=== PATIENT | male | born 1970 | race African-American/Black ===

== ENCOUNTER → 2020-04-21 12:42 | Outpatient (CLI) | payer BC, SELFPAY ==
--- NOTE | 2020-04-21 12:53 | US_ITS ---
PROCEDURE: US KIDNEY CLINICAL INDICATION: STAGE 3 CHRONIC KIDNEY DISEASE Renal failure COMPARISON: No exams were available for comparison FINDINGS: The right kidney is [id number]. No hydronephrosis, cortical thinning, or renal mass or perinephric fluid collection is evident. The left kidney is [id number]. No hydronephrosis, cortical thinning, or renal mass or perinephric fluid collection is evident. IMPRESSION: Unremarkable bilateral renal ultrasound Dictated by: Kenji Andersen MD 04/21/2020 16:48 Electronically signed by Kenji Andersen MD in [place] 04/21/2020 16:48
== END ==
PROVIDERS: PCP Family Medicine; Visit Provider Nurse Practitioner Family
DX: N18.3 Chronic kidney disease, stage 3 (moderate) (principal)
CPT/HCPCS: 76770

== ENCOUNTER 2022-08-05 10:53 | Emergency (ER) | payer BC, SELFPAY ==
[2022-08-05 11:00] VITALS: BP 140/92; PULSE 105; RESP 20; TEMP 36.8; O2SAT 99; BMI 31.5
--- NOTE | 2022-08-05 11:16 | EXP.UTC ---
Discharge Plan Disposition Patient Disposition: Home, Self-Care Prescriptions Prescriptions: New amoxicillin 875 mg tablet 875 mg PO BID Qty: 20 0RF fluticasone propionate [Flonase Allergy Relief] 50 mcg/actuation spray,suspension 1 spray intranasal DAILY Qty: 16 0RF Rx Instructions: administer into each nostril methylprednisolone [Medrol (Miguel)] 4 mg tablets,dose pack See Rx Instructions .Route .COMPLEX 6 Days Qty: 21 0RF Rx Instructions: taper pack; No Action amlodipine-benazepril 10-40 mg capsule 1 cap PO DAILY Label Comments: TAKE 1 CAPSULE BY MOUTH ONCE DAILY Referrals Follow up/Referrals: Benito Prince MD [Primary Care Provider] - See instructions Activity Restrictions/Add. Instructions Additional Instructions/Restrictions: Take medication as prescribed Follow up with Family Doctor if no improvement or any worsening of symptoms Return if needed Straight to ER if any life threatening symptoms Over the counter Dramamine may help if your dizziness returns Clinical Impressions Clinical Impression: Otitis media Instructions Patient Instructions: Middle Ear Infections (Alternative Therapy) Discharge ED Provider: Kathy Shirley [facility] General Stated complaint: RT ear pain Mode of Arrival: Ambulatory Source of Information: Patient Limitations: No Limitations Time Seen by Provider: 08/05/22 11:16 Description of Symptoms (Recalled from Triage Doc. by RN): PATIENT C/O POPPING TO RIGHT EAR AND DIZZINESS X 2 DAYS HEENT Symptoms (Recalled from RN notes): Yes Resp Symptoms (Recalled from RN notes): No Skin Symptoms (Recalled from RN notes): No MS Symptoms (Recalled from RN notes): No Functional Status (Recalled from RN notes): WNL History of Present Illness Provider Complaint: Patient states that he has been having achy like feeling in his right ear, popping sensation and felt a little dizzy on and off when he would turn his head or move quickly States that he feels like he has an ear infection causing it Related Data Home Medications Medication Instructions Recorded Confirmed amlodipine 10 mg-benazepril 40 mg 1 cap PO DAILY Hypertension 08/05/22 08/05/22 capsule Previous Rx's Medication Instructions Recorded amoxicillin 875 mg tablet 875 mg PO BID #20 tabs 08/05/22 fluticasone propionate 50 1 spray intranasal DAILY #16 grams 08/05/22 mcg/actuation nasal spray,suspension (Flonase Allergy Relief) methylprednisolone 4 mg tablets in See Rx Instructions .Route 08/05/22 a dose pack (Medrol (Miguel)) .COMPLEX 6 days #21 tabs Allergies Allergy/AdvReac Type Severity Reaction Status Date / Time No Known Allergies Allergy Verified 08/05/22 11:15 Worker's Comp Is this a Worker's Comp case?: No PFSH PFSH Medical History (Updated 08/05/22 @ 11:20 by Kathy Shirley APRN) Hypertension Social History (Updated 08/05/22 @ 11:14 by Jennifer Thomas RN) Smoking Status: Current every day smoker alcohol intake: current current occupational status: employed Travel in the last 8 weeks: None ROS Obtained: Yes All systems reviewed & no additional complaints except as documented and Yes Systems reviewed as appropriate & no additional complaints except as documented Constitutional Constitutional: Reports system reviewed and no additional complaints, except as documented and Reports as per HPI Eyes Eyes: Reports system reviewed and no additional complaints, except as documented and Reports as per HPI ENT Ears, Nose, Mouth, and Throat: Reports system reviewed and no additional complaints, except as documented, Reports as per HPI, Reports dizziness and Reports otalgia Neurologic Neurologic: Reports dizziness Physical Exam General General appearance: alert and in no apparent distress Expanded ENT Exam TM/Canal exam: Right TM: erythema (redness and fluid noted after some of cerumen removed) and Bilateral TM: cerumen impaction (removed larg
[2022-08-05 11:21] VITALS: BP 140/92; PULSE 105; RESP 20; TEMP 36.8; O2SAT 99
== END 2022-08-05 11:25 | disposition home or self-care (01) ==
PROVIDERS: Emergency Provider Nurse Practitioner; PCP Family Medicine
DX: H66.91 Otitis media, unspecified, right ear (principal); R42 Dizziness and giddiness; I10 Essential (primary) hypertension; F17.210 Nicotine dependence, cigarettes, uncomplicated; Z79.51 Long term (current) use of inhaled steroids; Z79.52 Long term (current) use of systemic steroids
CPT/HCPCS: 99213; G0463

== ENCOUNTER 2023-11-24 16:57 | Observation (INO) | payer BC, SELFPAY ==
[2023-11-24] VITALS (8 sets, daily range): BP systolic 115–142; BP diastolic 72–82; PULSE 80–116; RESP 14–20; TEMP 36.7–36.9; O2SAT 94–100; BMI 30.1; BMI 31.6
--- NOTE | 2023-11-24 17:14 | ECG_ITS ---
APPROVED REPORT Exam: Resting ECG HR:99 bpm ECG Measurements Heart Rate 99 AXES OK 161 P 50 QRSd 82 QRS 66 QT 310 T 24 QTc 366 Conclusion SINUS RHYTHM NORMAL ECG UNCONFIRMED REPORT Electronically signed by : Benito Ramirez MD 11/25/2023 17:17:29
--- NOTE | 2023-11-24 17:16 | ED_ITS ---
Discharge Plan Disposition Patient Disposition: Admitted Chief Complaint: Dental/Oral Clinical Impressions Clinical Impression: Hyperosmolar hyperglycemic state (HHS) Discharge ED Provider: Anselmo Nolasco General Adult HPI General Chief complaint: Dental/Oral Stated complaint: fatigue dry mouth weakness Time Seen by Provider: 11/24/23 17:00 Mode of Arrival: Ambulatory Source of Information: Patient and Significant Other Limitations: No Limitations Description of Symptoms (Recalled from ER Triage Doc. by RN): pt c/o having cotton mouth over the last few days. this is the main reason for his visit per the pt. pt also reports tingling in his feet, minimal weakness and his hands pedro up. pt reports he could be dehydrated. pt has a hx of hyptertension. pt denies a hx of drug use. History of Present Illness HPI narrative: Patient is a 53-year-old male with no pertinent past medical history who presents emergency department for evaluation of tingling and dry mouth. History is obtained by patient at bedside. Over the last few days he has had gen eralized weakness, increased urinary frequency, dry mouth, intermittent drawing up his of his hands and cheek. Due to persistent symptoms he presents here for continued evaluation. Denies vomiting, no reports of chest pain, no abdominal pain, no sick contacts. Related Data Home Medications Medication Instructions Recorded Confirmed amlodipine 10 mg-benazepril 40 mg 1 cap PO DAILY Hypertension 08/05/22 08/05/22 capsule Previous Rx's Medication Instructions Recorded amoxicillin 875 mg tablet 875 mg PO BID #20 tabs 08/05/22 fluticasone propionate 50 1 spray intranasal DAILY #16 grams 08/05/22 mcg/actuation nasal spray,suspension (Flonase Allergy Relief) methylprednisolone 4 mg tablets in See Rx Instructions .Route 08/05/22 a dose pack (Medrol (Miguel)) .COMPLEX 6 days #21 tabs Allergies Allergy/AdvReac Type Severity Reaction Status Date / Time No Known Allergies Allergy Verified 11/24/23 17:12 [facility] Disclaimer: The information contained in this section may have been updated after the patient was seen, as this information can be updated by other users. Medical History (Updated 11/24/23 @ 19:26 by Anselmo Nolasco MD) Hypertension Social History (Updated 08/05/22 @ 11:23 by Navya Shirley, [employer]) Smoking Status: Current every day smoker alcohol intake: current current occupational status: employed Travel in the last 8 weeks: None ROS Obtained: Yes Systems reviewed as appropriate & no additional complaints except as documented Physical Exam General General appearance: alert and in no apparent distress Head Head exam: atraumatic and normocephalic Eye Eye exam: Present PERRL and EOMI ENT ENT exam: Present mucous membranes moist Neck Neck exam: Present normal inspection Chest Chest inspection: Present normal inspection and symmetric chest wall rise Respiratory Respiratory exam: Present normal lung sounds bilaterally; Absent respiratory distress Cardiovascular Cardiovascular exam: Present normal rhythm and tachycardia Abdominal Exam Abdominal exam: Present soft; Absent tenderness Extremities Exam Extremities exam: Present normal inspection Neurological Exam Neurological exam: Present alert and CN II-XII intact; Absent motor sensory deficit Psychiatric Psychiatric exam: Present normal affect Skin Skin exam: Present warm and dry Medical Decision Making Jose D Inquiry Pt receiving controlled substance: No Vital Signs: 11/24/23 16:58 11/24/23 18:00 Temperature 98.1 F Temperature Source Oral Pulse Rate 100 H Pulse Rate [Right] 116 H Respiratory Rate 14 Blood Pressure 115/82 Blood Pressure [Right Arm] 124/82 Blood Pressure Mean [Right Arm] 96 Blood Pressure Source [Right Arm] Automatic Cuff Blood Pressure Position [Right Arm] Sitting 02 Sat by Pulse Oximetry 98 98 Oxygen Delivery Method Room Air Lab Data Lab Results 11/24/23 17:20: WBC 6.9, RBC 4.82, Hgb 16.2, Hct 51.2, MCV 106.1 H, MCH 33.6 H, MCHC 31.7 L, RDW 12.4, Plt Count 249, MPV 10.4, Neut % (Auto) 71.4, Lymph % (Auto) 22.6, [place] % (Auto) 3.9, Eos % (Auto) 1.2, Baso % (Auto) 0.9, Neut # (Auto) 4.9, Lymph # (Auto) 1.6, [place] # (Auto) 0.3, Eos # (Auto) 0.1, Baso # (Auto) 0.1, Sodium 117 L, Potassium 6.8 H*, Chloride 85 L, Carbon Dioxide 23, Anion Gap 15.8 H, BUN 27 H, Creatinine 1.80 H, Estimated Creat Clear 65, Estimated GFR 40 L, Est GFR ( Amer) 48 L, Glucose 1012 H*, Hemoglobin A1c 11.8 H, Calcium 9.3, Magnesium 2.2, Total Bilirubin 0.9, AST 31, ALT 31, Alkaline Phosphatase 103, Total Protein 7.1, Albumin 4.4, Globulin 2.7, Albumin/Globulin Ratio 1.6, Lipase 209, TSH 1.84, Thyroxine (T4) 6.2, Acetone Level None detected 11/24/23 17:31: SARS-CoV-2 (PCR) Not detected, Influenza A Untype (PCR) Not detected, Influenza Type B (PCR) Not detected 11/24/23 17:48: VBG pH 7.29 L, VBG pCO2 50.3, VBG pO2 25.4 L, VBG HCO3 23.6, VBG Total CO2 25.2, VBG O2 Saturation 47.3 L, VBG Base Excess -2.9 L 11/24/23 17:50: Urine Color Yellow, Urine Appearance Clear, Urine pH 6.0, Ur Specific [place] <= 1.005, Urine Protein Negative, Urine Glucose (UA) 3+, Urine Ketones Negative, Urine Blood Negative, Urine Nitrate Negative, Urine Bilirubin Negative, Urine Urobilinogen 0.2, Ur Leukocyte Esterase Negative, Urine RBC None, Urine WBC None, Ur Squamous Epith Cells Occasional, Urine Bacteria None, Urine Opiates Screen Negative, Urine Methadone Screen Negative, Ur Barbituates Screen Negative, Ur Phencyclidine Scrn Negative, Ur Amphetamines Screen Negative, U Benzodiazepines Scrn Negative, Urine Cocaine Screen Negative, U Marijuana (THC) Screen Negative 11/24/23 18:10: Lactate 3.6 H 11/24/23 17:20 11/24/23 17:20 Orders (Tests/Meds): ED MEDICATIONS Generic Name Dose Route Start Last Admin Trade Name Pipoq PRN Reason Stop Dose Admin Sodium Chloride 1,000 mls @ 150 mls/hr 11/24/23 18:30 11/24/23 18:55 Sod Chlor 0.9% 1000ml Bag IV 12/24/23 18:29 150 mls/hr .[id number] HALIE Administration Insulin Human Regular 100 unit 101 mls @ 9.621 mls/hr 11/24/23 18:30 11/24/23 18:54 / Sodium Chloride IV 12/24/23 18:29 0.1 units/kg/hr .[id number] HALIE 9.62 mls/hr Administration Protocol 0.1 UNITS/KG/HR Calcium Gluconate/Sodium Chloride 2 gm in 100 mls @ 50 mls/hr 11/24/23 18:21 11/24/23 18:56 Calcium Gluconate 2,000mg/100ml Nacl Premix IV 11/24/23 20:20 50 mls/hr ONCE ONE Administration Lactated Ringer's 1,000 mls @ 999 mls/hr 11/24/23 19:02 11/24/23 19:03 Lactated Ringer's 1000 Ml Bag IV 11/24/23 20:02 999 mls/hr .Q1H1M ONE Administration Discontinued Medications Generic Name Dose Route Start Last Admin Trade Name Freq PRN Reason Stop Dose Admin Lactated Ringer's 1,000 mls @ 999 mls/hr 11/24/23 17:13 11/24/23 17:36 Lactated Ringer's 1000 Ml Bag IV 11/24/23 18:13 999 mls/hr .Q1H1M ONE Administration ORDERS Category Date Time Status Acetone, Serum (Rapid) Stat Lab 11/24/23 17:20 Completed Basic Metabolic Panel Q12H Lab 11/25/23 06:00 Ordered Basic Metabolic Panel Q12H Lab 11/25/23 18:00 Ordered Basic Metabolic Panel Q12H Lab 11/26/23 06:00 Ordered Basic Metabolic Panel Q4H Lab 11/24/23 19:11 Received Basic Metabolic Panel Q4H Lab 11/24/23 22:30 Ordered Basic Metabolic Panel Q4H Lab 11/25/23 02:30 Ordered Basic Metabolic Panel Q4H Lab 11/25/23 06:30 Ordered CBC w/Auto Diff [Complete Blood Count Auto Diff] Stat Lab 11/24/23 17:20 Completed CMP [Comprehensive Metabolic Panel] Stat Lab 11/24/23 17:20 Completed Drug Screen,Urine Stat Lab 11/24/23 17:50 Completed Hemoglobin A1C Stat Lab 11/24/23 17:20 Completed Lactic Acid Stat Lab 11/24/23 18:10 Completed Lipase Stat Lab 11/24/23 17:20 Completed Magnesium Stat Lab 11/24/23 17:20 Completed Rapid PCR Covid and Flu A/B Stat Lab 11/24/23 17:31 Completed T4 (Thyroxine) Stat Lab 11/24/23 17:20 Completed TSH [Thyroid Stimulating Hormone] Stat Lab 11/24/23 17:20 Completed UA [Urinalysis and Microscopic] Stat Lab 11/24/23 17:50 Completed Blood Culture Stat Micro 11/24/23 18:20 Ordered VBG [Venous Blood Gas] Stat RT 11/24/23 17:48 Completed EKG Request [ECG Request] Stat Y 11/24/23 17:13 Ordered ECG Data Tracing #1: Independently interpreted by me, rate is 99, rhythm is regular, no ST elevation in anatomical contiguous leads, QTc 366. Medical Decision Narrative: In summary patient is a 53-year-old male with past medical history described above presents emergency department for evaluation of dry mouth, paresthesias, intermittent muscle spasm, increased urinary frequency. Patient is hemodynamically stable and nontoxic-appearing upon arrival, afebrile, tachycardic. Differential diagnosis includes diabetes, urinary tract infection, viral syndrome, critical electrolyte abnormality, intermittent symptomatic hypocalcemia, among others. Workup will be conducted with hematologic labs, urinalysis. Initial interventions include crystalloid bolus. Initial workup reviewed by me, patient has significantly elevated glucose 1012, ketones negative, minimal acidosis. Multiple electrolyte abnormalities including hypo natremia, hyperkalemia, TONE. This is consistent with new onset diabetes with HHS. EKG has very mild elevation of T waves in the precordial leads, otherwise unremarkable from a hyperkalemia standpoint. Given this patient will be started on DKA/HHS protocol. The case was discussed with hospital medicine regarding management patient be admitted for continued evaluation at this time. Total crystalloid resuscitation 2 L in the emergency department with maintenance therapy. Critical Care Critical Care Time Critical Care Time: Yes Attestation: On 11/24/23, the high probability of a clinically significant, sudden or life threatening deterioration of the following system(s) required my full and direct attention, intervention and personal management. The time I documented below is in addition to time spent performing reported procedures but includes the following listed in this critical care notation. Total Time Total Critical Care Time: 35
[2023-11-24] MEDS: LACTATED RINGERS 1000ML 1,000 ML 999 ML IV ×2 (17:36→19:03)
[2023-11-24 17:38] LABS: Coronavirus 19, PCR Not Detected (NotDetected); Influenza A, PCR Not Detected (NotDetected); Influenza B, PCR Not Detected (NotDetected)
[2023-11-24 17:50] LABS: VBG Base Excess -2.9 mmol/L (-2.4-2.3); VBG HCO3 23.6 mmol/L (23-30); VBG Oxygen Saturation 47.3 % (50-70); VBG PCO2 50.3 mmol/L (35-51); VBG PH 7.29 mmol/L (7.31-7.41); VBG PO2 25.4 mmol/L (28-40); VBG Total CO2 25.2 mmol/L (23-27)
[2023-11-24 17:58] LABS: Microscopic, Urine URINE MICROSCOPIC (MICROSCOPIC)
[2023-11-24 18:00] LABS: Basophils # 0.1 K/mm3 (0-0.2); Basophils % 0.9 % (0.1-2.0); Eosinophils # 0.1 K/mm3 (0.0-0.4); Eosinophils % 1.2 % (0.1-12.0); Hematocrit 51.2 % (42.0-52.0); Hemoglobin 16.2 g/dL (14.1-18.0); Lymphocytes # 1.6 K/mm3 (0.7-4.5); Lymphocytes % 22.6 % (10-50); Magnesium 2.2 mg/dl (1.6-2.3); Mean Corpuscular HGB Conc 31.7 g/dL (31.8-35.4); Mean Corpuscular Hemoglobin 33.6 pg (27.0-31.2); Mean Corpuscular Volume 106.1 fl (80-94); Mean Platelet Volume 10.4 fl (7.4-10.4); Monocytes # 0.3 K/mm3 (0.1-1.0); Monocytes % 3.9 % (1.7-9.3); Neutrophils # 4.9 K/mm3 (1.8-7.8); Neutrophils % 71.4 % (37.0-80.0); Platelet Count 249 K/mm3 (142-424); Red Blood Count 4.82 M/mm3 (4.60-6.20); Red Cell Distribution Width 12.4 % (11.5-17.5); White Blood Count 6.9 K/mm3 (4.8-10.8)
[2023-11-24 18:01] LABS: Acetone, Serum (Rapid) None Detected (None Detect)
--- NOTE | 2023-11-24 18:02 | PC.NURSE ---
Pt ambulatory to bathroom. Ice chips provided. No other needs voiced.
[2023-11-24 18:03] LABS: Chloride 85 mmol/L (98-107); Sodium 117 mmol/L (136-145)
[2023-11-24 18:05] LABS: Appearance,Urine CLEAR (Clear); Bilirubin,Urine Negative (Negative); Blood, Urine Negative (Negative); Color,Urine YELLOW (Yellow); Glucose,Urine (UA) 3+ (Negative); Ketones,Urine Negative (Negative); Leukocyte Esterase,Urine Negative (Negative); Nitrate,Urine Negative (Negative); Protein,Urine Negative (Negative); Specific Gravity, Urine <= 1.005 (1.005-1.030); Urobilinogen,Urine 0.2 EU/dl (0.2)
[2023-11-24 18:05] LABS: Blood Urea Nitrogen 27 mg/dl (9-20); Creatinine Clearance Estimated 65 mL/min (50-200); Estimated Glomerular Filt Rate 40 ml/min (>60); GFR (African American) 48 ML/MIN (>60)
[2023-11-24 18:06] LABS: Alanine Aminotransferase 31 U/L (12-78); Albumin Level 4.4 g/dl (3.5-5.0); Albumin/Globulin Ratio 1.6 (1.1-1.8); Alkaline Phosphatase 103 U/L (38-126); Anion Gap 15.8 mEq/L (5-15); Aspartate Amino Transferase 31 U/L (17-59); Bilirubin,Total 0.9 mg/dl (0.2-1.3); Calcium 9.3 mg/dl (8.4-10.2); Carbon Dioxide 23 mmol/L (22.0-30.0); Globulin 2.7 g/dL (1.3-3.2); Total Protein,Serum 7.1 g/dl (6.3-8.2)
[2023-11-24 18:16] LABS: Glucose 1012 mg/dl (74-100); Potassium 6.8 mmoL/L (3.5-5.1)
[2023-11-24 18:18] LABS: Barbiturates Screen,Urine Negative ng/ml (<200)
[2023-11-24 18:19] LABS: T4 (Thyroxine) 6.2 ug/dl (5.53-11.0)
[2023-11-24 18:19] LABS: Amphetamine/Metha Screen,Urine Negative ng/ml (<1000); Benzodiazepines Screen,Urine Negative ng/ml (<200)
[2023-11-24 18:20] LABS: Cannabinoid Screen,Urine Negative ng/ml (<50)
[2023-11-24 18:21] LABS: Cocaine Screen,Urine Negative ng/ml (<300); Methadone Screen,Urine Negative ng/ml (<300)
[2023-11-24 18:22] LABS: Opiate Screen,Urine Negative ng/ml (<300)
[2023-11-24 18:23] LABS: Phencyclidine Screen,Urine Negative ng/ml (<25)
[2023-11-24 18:29] LABS: Squamous Epithelial Cell,Urine Occasional #/hpf (0-5)
[2023-11-24 18:31] LABS: Lipase 209 U/L (23-300)
[2023-11-24 18:32] LABS: Thyroid Stimulating Hormone 1.84 uIU/mL (0.465-4.68)
[2023-11-24 18:34] LABS: Lactic Acid 3.6 mmol/L (0.7-2.1)
[2023-11-24 18:50] LABS: Hemoglobin A1C 11.8 % (4.0-6.0)
[2023-11-24] MEDS: INSULIN REGULAR, HUMAN 100 UNIT in 0.9 % SODIUM CHLORIDE 100 ML 9.61999999999999922 UNIT IV (18:54)
[2023-11-24] MEDS: 0.9 % SODIUM CHLORIDE 1000ML 1,000 ML 150 ML IV (18:55)
[2023-11-24] MEDS: CALCIUM GLUC IN NACL, ISO-OSM 2 GM/100 ML BAG IV (18:56)
--- NOTE | 2023-11-24 19:05 | PC.NURSE ---
notified lodging house keeper of admission
--- NOTE | 2023-11-24 19:13 | PC.NURSE ---
in room talking with patient at this time.
--- NOTE | 2023-11-24 19:15 | PC.ADMIT ---
no@ [facility] Admission Note: The patient,Rinku Rivera,53 y/o, was given written information regarding hospital policies, unit procedures and contact persons. Patient's smoking status: Current every day smoker. Vital Signs - 8 hr 11/24/23 16:58 11/24/23 18:00 Temperature 98.1 F Pulse Rate 100 H Pulse Rate [Right] 116 H Respiratory Rate 14 Blood Pressure 115/82 Blood Pressure [Right Arm] 124/82 02 Sat by Pulse Oximetry 98 98 Oxygen Delivery Method Room Air
--- NOTE | 2023-11-24 19:15 | PC.NURSE ---
ACUTE ADMISSION TO 218 ICU WITH DX OF HHS TO SERVICE OF THE HOSPITALIST.
[2023-11-24 19:24] LABS: Chloride 89 mmol/L (98-107); Sodium 122 mmol/L (136-145)
[2023-11-24 19:25] LABS: Potassium 5.8 mmoL/L (3.5-5.1)
[2023-11-24 19:27] LABS: Blood Urea Nitrogen 25 mg/dl (9-20); Creatinine Clearance Estimated 69 mL/min (50-200); Estimated Glomerular Filt Rate 43 ml/min (>60); GFR (African American) 52 ML/MIN (>60)
[2023-11-24 19:28] LABS: Anion Gap 12.8 mEq/L (5-15); Calcium 8.9 mg/dl (8.4-10.2); Carbon Dioxide 26 mmol/L (22.0-30.0)
[2023-11-24] MEDS: NICOTINE 21MG/24HR PATCH 21 MG TD (19:33)
[2023-11-24 19:41] LABS: Glucose 798 mg/dl (74-100)
--- NOTE | 2023-11-24 19:59 | PC.NURSE ---
report called to Akosua HERR
--- NOTE | 2023-11-24 20:16 | PC.NURSE ---
Patient arrived to floor via wheelchair from ED at 20:15.
--- NOTE | 2023-11-24 20:51 | P.HP_ITS ---
Attending attestation Patient was seen and evaluated at the bedside myself, agree with QIANA note. History of Present Illness *Admission Date: 11/24/23 *Reason for visit:: [facility] *History of present illness: 53 year old male presented to [facility] ED for c/o increased thirst, urination, and weakness over the past couple days. Pt denies any nausea or vomiting. PMHX of HTN. Pt denies prior diabetes dx. The ED workup resulted in a Na 117, K 6.8, creatinine of 1.80, Anion gap of 15.8, and glucose of 1012. The pt was given 2L of LR and started on the hospital's DKA protocol. The ED physician consulted the hospitalist team for further medical management. I admitted the pt to the ICU. The pt will continue with the insulin gtt. Upon admission, the pt is in no acute distress. He is A/O X 4 and ambulates freely without difficulty. [facility] Disclaimer: The information contained in this section may have been updated after the patient was seen, as this information can be updated by other users. Medical History (Updated 11/24/23 @ 21:11 by MORRIS Call) Hypertension Social History (Updated 08/05/22 @ 11:23 by Kathy Shirley APRN) Smoking Status: Current every day smoker alcohol intake: current current occupational status: employed Travel in the last 8 weeks: None Review of Systems Constitutional Constitutional: Reports weakness *Cardiovascular Cardiovascular: Reports system reviewed and no additional complaints, except as documented *Respiratory Respiratory: Reports system reviewed and no additional complaints, except as documented *Gastrointestinal Gastrointestinal: Reports system reviewed and no additional complaints, except as documented *Genitourinary Genitourinary: Reports urinary frequency *Musculoskeletal Musculoskeletal: Reports system reviewed and no additional complaints, except as documented *Neurologic Neurologic: Reports weakness Endocrine Endocrine: Reports polydipsia and Reports polyuria Meds Home Medications and Allergies Home Medications Medication Instructions Recorded Confirmed Type amlodipine 10 mg-benazepril 40 mg 1 cap PO DAILY Hypertension 08/05/22 08/05/22 History capsule amoxicillin 875 mg tablet 875 mg PO BID #20 tabs 08/05/22 Rx fluticasone propionate 50 1 spray intranasal DAILY #16 grams 08/05/22 Rx mcg/actuation nasal spray,suspension (Flonase Allergy Relief) methylprednisolone 4 mg tablets in See Rx Instructions .Route 08/05/22 Rx a dose pack (Medrol (Miguel)) .COMPLEX 6 days #21 tabs New Prescriptions to Start Prescriptions: Allergies Allergy/AdvReac Type Severity Reaction Status Date / Time No Known Allergies Allergy Verified 11/24/23 17:12 Exam Data for Last 24 hours Vital signs and Labs for Last 24 Hours: Temp Pulse Resp BP Pulse Ox O2 Del Method 98.5 F 99 H 20 118/75 98 Room Air 11/24/23 20:13 11/24/23 20:13 11/24/23 20:13 11/24/23 20:13 11/24/23 18:00 11/24/23 20:13 Laboratory Results - last 24 hr 11/24/23 17:20: WBC 6.9, RBC 4.82, Hgb 16.2, Hct 51.2, MCV 106.1 H, MCH 33.6 H, MCHC 31.7 L, RDW 12.4, Plt Count 249, MPV 10.4, Neut % (Auto) 71.4, Lymph % (Auto) 22.6, [place] % (Auto) 3.9, Eos % (Auto) 1.2, Baso % (Auto) 0.9, Neut # (Auto) 4.9, Lymph # (Auto) 1.6, [place] # (Auto) 0.3, Eos # (Auto) 0.1, Baso # (Auto) 0.1, Sodium 117 L, Potassium 6.8 H*, Chloride 85 L, Carbon Dioxide 23, Anion Gap 15.8 H, BUN 27 H, Creatinine 1.80 H, Estimated Creat Clear 65, Estimated GFR 40 L, Est GFR ( Amer) 48 L, Glucose 1012 H*, Hemoglobin A1c 11.8 H, Calcium 9.3, Magnesium 2.2, Total Bilirubin 0.9, AST 31, ALT 31, Alkaline Phosphatase 103, Total Protein 7.1, Albumin 4.4, Globulin 2.7, Albumin/Globulin Ratio 1.6, Lipase 209, TSH 1.84, Thyroxine (T4) 6.2, Acetone Level None detected 11/24/23 17:31: SARS-CoV-2 (PCR) Not detected, Influenza A Untype (PCR) Not detected, Influenza Type B (PCR) Not detected 11/24/23 17:48: VBG pH 7.29 L, VBG pCO2 50.3, VBG pO2 25.4 L, VBG HCO3 23.6, VBG Total CO2 25.2, VBG O2 Saturation 47.3 L, VBG Base Excess -2.9 L 11/24/23 17:50: Urine Color Yellow, Urine Appearance Clear, Urine pH 6.0, Ur Specific [place] <= 1.005, Urine Protein Negative, Urine Glucose (UA) 3+, Urine Ketones Negative, Urine Blood Negative, Urine Nitrate Negative, Urine Bilirubin Negative, Urine Urobilinogen 0.2, Ur Leukocyte Esterase Negative, Urine RBC None, Urine WBC None, Ur Squamous Epith Cells Occasional, Urine Bacteria None, Urine Opiates Screen Negative, Urine Methadone Screen Negative, Ur Barbituates Screen Negative, Ur Phencyclidine Scrn Negative, Ur Amphetamines Screen Negative, U Benzodiazepines Scrn Negative, Urine Cocaine Screen Negative, U Marijuana (THC) Screen Negative 11/24/23 18:10: Lactate 3.6 H 11/24/23 19:11: Sodium 122 L, Potassium 5.8 H, Chloride 89 L, Carbon Dioxide 26, Anion Gap 12.8, BUN 25 H, Creatinine 1.70 H, Estimated Creat Clear 69, Estimated GFR 43 L, Est GFR ( Amer) 52 L, Glucose 798 H* D, Calcium 8.9 I & O for Last 24 hours: Intake & Output 11/21/23 11/22/23 11/23/23 11/24/23 23:59 23:59 23:59 23:59 Intake Total 12.416 / 12.416 Balance 12.416 / 12.416 Weight 95.254 kg Constitutional Constitutional: no acute distress *Routine HEENT Exam Head: Present normocephalic Eye: Present EOMI ENT: Present mucous membranes moist *Routine Neck Exam Neck: Present full ROM *Routine Respiratory Exam Respiratory: Present CTA bilaterally *Routine Cardiovascular Exam Cardiovascular: Present RRR *Routine Abdominal Exam Abdominal: Present soft and normoactive bowel sounds; Absent tenderness *Routine Rectal Exam Rectal:: deferred *Routine Genitalia Exam Genitalia:: deferred *Routine Extremities Exam Extremities: Present full ROM *Routine Skin Exam Skin: Present intact *Routine Neurological Exam Neurological: Present alert and oriented X3 Assessment and Plan *Assessment and plan (1) Hyperosmolar hyperglycemic state (HHS): Status: Acute Category: Medical Code(s): E11.00 - Type 2 diabetes mellitus with hyperosmolarity without nonketotic hyperglycemic-hyperosmolar coma ([facility]) (2) Diabetes: Status: Acute Category: Medical Code(s): E11.9 - Type 2 diabetes mellitus without complications (3) Hypertension: Status: Acute Category: Medical Code(s): I10 - Essential (primary) hypertension (4) Tobacco abuse: Status: Acute Category: Medical Code(s): Z72.0 - Tobacco use Plan 53 year old male presented to [facility] ED for c/o increased thirst, urination, and weakness over the past couple days. Pt denies any nausea or vomiting. PMHX of HTN. Pt denies prior diabetes dx. The ED workup resulted in a Na 117, K 6.8, creatinine of 1.80, Anion gap of 15.8, and glucose of 1012. The pt was given 2L of LR and started on the hospital's DKA protocol. The ED physician consulted the hospitalist team for further medical management. I admitted the pt to the ICU. The pt will continue with the insulin gtt. HHS DM -NO prior hx. c/o polyuria and polydipsia -ED labs reviewed and reveal Na 117, K 6.8, creatinine of 1.80, Anion gap of 15.8, and glucose of 1012. -A1c 11.8 -Continue insulin gtt -BMP q 4 hr -continue to monitor electrolytes. K 6.8 in ED and has decreased to 5.8 on admission. Continue cardiac monitoring in ICU -finger stick blood sugar q 1 hr -continue maintenance fluids of NS @ 150 mL/hr HTN -awaiting home med req TOBACCO ABUSE -nicotine patch PRN FULL CODE NPO DVT: SCD
--- NOTE | 2023-11-24 21:53 | PC.NURSE ---
2030 FSBS 442 and insulin gtt rate was decreased by half to 2.4 units/hr due to previous glucose being 798. 0 FSBS 450 and policy states to increase gtt by 2 units/hr which would put insulin to almost to same rate as previous hour; discussed with hospitalist and told to leave at current rate.
[2023-11-24 22:17] LABS: Reflex Lactic Add Lactic Reflex
[2023-11-24 22:55] LABS: Chloride 99 mmol/L (98-107)
[2023-11-24 22:56] LABS: Potassium 4.1 mmoL/L (3.5-5.1); Sodium 128 mmol/L (136-145)
[2023-11-24 22:58] LABS: Blood Urea Nitrogen 20 mg/dl (9-20); Creatinine Clearance Estimated 88 mL/min (50-200); Estimated Glomerular Filt Rate 53 ml/min (>60); GFR (African American) 65 ML/MIN (>60)
[2023-11-24 22:59] LABS: Anion Gap 8.1 mEq/L (5-15); Calcium 9.5 mg/dl (8.4-10.2); Carbon Dioxide 25 mmol/L (22.0-30.0); Glucose 364 mg/dl (74-100); Lactic Acid Follow Up (RFLX 1) 1.3 mmol/L (0.7-2.1)
[2023-11-25] VITALS (9 sets, daily range): BP systolic 107–139; BP diastolic 44–91; PULSE 90–100; RESP 16–20; TEMP 36.9; O2SAT 95–98; BMI 31.5
[2023-11-25] MEDS: 0.9 % SODIUM CHLORIDE 1000ML 1,000 ML 150 ML IV (00:51)
[2023-11-25 01:06] LABS: Anion Gap 9.8 mEq/L (5-15); Blood Urea Nitrogen 19 mg/dl (9-20); Calcium 9.1 mg/dl (8.4-10.2); Carbon Dioxide 23 mmol/L (22.0-30.0); Chloride 102 mmol/L (98-107); Creatinine Clearance Estimated 103 mL/min (50-200); Estimated Glomerular Filt Rate 64 ml/min (>60); GFR (African American) 77 ML/MIN (>60); Glucose 307 mg/dl (74-100); Potassium 3.8 mmoL/L (3.5-5.1); Sodium 131 mmol/L (136-145)
--- NOTE | 2023-11-25 03:30 | PC.NURSE ---
insulin gtt rate remained at 2.4 units/hr and increased to 4.4 units/hr at 0130 check per hospitalist verbal order
[2023-11-25 03:42] LABS: Chloride 104 mmol/L (98-107); Potassium 3.5 mmoL/L (3.5-5.1); Sodium 132 mmol/L (136-145)
[2023-11-25 03:45] LABS: Anion Gap 7.5 mEq/L (5-15); Blood Urea Nitrogen 18 mg/dl (9-20); Calcium 8.8 mg/dl (8.4-10.2); Carbon Dioxide 24 mmol/L (22.0-30.0); Creatinine Clearance Estimated 103 mL/min (50-200); Estimated Glomerular Filt Rate 64 ml/min (>60); GFR (African American) 77 ML/MIN (>60); Glucose 257 mg/dl (74-100)
[2023-11-25] MEDS: humaLOG 100 UNITS/ML 3ML VIAL (SSI) SQ ×2 (04:36→11:28)
--- NOTE | 2023-11-25 05:00 | PC.NURSE ---
pt is now off insulin gtt and has been transitioned to ACHS sliding scale FSBS per hospitalist order. pt given turkey sandwich and encouraged to drink fluids.
[2023-11-25 06:54] LABS: Chloride 103 mmol/L (98-107); Potassium 3.9 mmoL/L (3.5-5.1); Sodium 130 mmol/L (136-145)
[2023-11-25 06:55] LABS: Basophils # 0.1 K/mm3 (0-0.2); Eosinophils # 0.1 K/mm3 (0.0-0.4); Eosinophils % 1.5 % (0.1-12.0); Hematocrit 43.2 % (42.0-52.0); Lymphocytes # 2.2 K/mm3 (0.7-4.5); Lymphocytes % 34.2 % (10-50); Mean Corpuscular HGB Conc 33.6 g/dL (31.8-35.4); Mean Corpuscular Hemoglobin 33.4 pg (27.0-31.2); Mean Corpuscular Volume 99.4 fl (80-94); Mean Platelet Volume 10.2 fl (7.4-10.4); Monocytes # 0.4 K/mm3 (0.1-1.0); Monocytes % 5.4 % (1.7-9.3); Neutrophils # 3.8 K/mm3 (1.8-7.8); Neutrophils % 57.8 % (37.0-80.0); Platelet Count 226 K/mm3 (142-424); Red Blood Count 4.34 M/mm3 (4.60-6.20); Red Cell Distribution Width 12.4 % (11.5-17.5); White Blood Count 6.6 K/mm3 (4.8-10.8)
[2023-11-25 06:57] LABS: Anion Gap 7.9 mEq/L (5-15); Blood Urea Nitrogen 17 mg/dl (9-20); Calcium 8.6 mg/dl (8.4-10.2); Carbon Dioxide 23 mmol/L (22.0-30.0); Creatinine Clearance Estimated 95 mL/min (50-200); Estimated Glomerular Filt Rate 58 ml/min (>60); GFR (African American) 70 ML/MIN (>60); Glucose 366 mg/dl (74-100)
[2023-11-25 06:58] LABS: Hemoglobin 14.5 g/dL (14.1-18.0)
--- NOTE | 2023-11-25 07:36 | HMH.PHAINT1 ---
Pharmacy Intervention Comments: MEDICATION RECONCILIATION COMPLETED ON PATIENT USING EXTERNAL FILL HISTORY FROM PHARMACY. -BIBI RICO, SEEMAD
--- NOTE | 2023-11-25 09:41 | P.DS_ITS ---
General Admission date:: 11/24/23 Discharge date: 11/25/23 HPI HPI HPI: 53 year old male presented to [facility] ED for c/o increased thirst, urination, and weakness over the past couple days. Pt denies any nausea or vomiting. PMHX of HTN. Pt denies prior diabetes dx. The ED workup resulted in a Na 117, K 6.8, creatinine of 1.80, Anion gap of 15.8, and glucose of 1012. The pt was given 2L of LR and started on the hospital's DKA protocol. The ED physician consulted the hospitalist team for further medical management. I admitted the pt to the ICU. The pt will continue with the insulin gtt. Upon admission, the pt is in no acute distress. He is A/O X 4 and ambulates freely without difficulty. Hospital Course Hospital Course Hospital Course: 53 year old male presented to [facility] ED for c/o increased thirst, urination, and weakness over the past couple days. Pt denies any nausea or vomiting. PMHX of HTN. Pt denies prior diabetes dx. The ED workup resulted in a Na 117, K 6.8, creatinine of 1.80, Anion gap of 15.8, and glucose of 1012. The pt was given 2L of LR and started on the hospital's DKA protocol. The ED physician consulted the hospitalist team for further medical management. I admitted the pt to the ICU. The pt will continue with the insulin gtt. HHS - resolved DM - new onset HTN -awaiting home med req TOBACCO ABUSE -nicotine patch PRN dc on Insulin and Started on sitagliptin, stable for discharge Exam Data for Last 24 hours Vital signs and Labs for Last 24 Hours: Temp Pulse Resp BP Pulse Ox O2 Del Method 98.5 F 95 H 16 110/64 96 Room Air 11/25/23 08:00 11/25/23 08:00 11/25/23 08:00 11/25/23 08:00 11/25/23 08:00 11/25/23 09:00 Laboratory Results - last 24 hr 11/24/23 17:20: WBC 6.9, RBC 4.82, Hgb 16.2, Hct 51.2, MCV 106.1 H, MCH 33.6 H, MCHC 31.7 L, RDW 12.4, Plt Count 249, MPV 10.4, Neut % (Auto) 71.4, Lymph % (Auto) 22.6, [place] % (Auto) 3.9, Eos % (Auto) 1.2, Baso % (Auto) 0.9, Neut # (Auto) 4.9, Lymph # (Auto) 1.6, [place] # (Auto) 0.3, Eos # (Auto) 0.1, Baso # (Auto) 0.1, Sodium 117 L, Potassium 6.8 H*, Chloride 85 L, Carbon Dioxide 23, Anion Gap 15.8 H, BUN 27 H, Creatinine 1.80 H, Estimated Creat Clear 65, Estimated GFR 40 L, Est GFR ( Amer) 48 L, Glucose 1012 H*, Hemoglobin A1c 11.8 H, Calcium 9.3, Magnesium 2.2, Total Bilirubin 0.9, AST 31, ALT 31, Alkaline Phosphatase 103, Total Protein 7.1, Albumin 4.4, Globulin 2.7, Albumin/Globulin Ratio 1.6, Lipase 209, TSH 1.84, Thyroxine (T4) 6.2, Acetone Level None detected 11/24/23 17:31: SARS-CoV-2 (PCR) Not detected, Influenza A Untype (PCR) Not detected, Influenza Type B (PCR) Not detected 11/24/23 17:48: VBG pH 7.29 L, VBG pCO2 50.3, VBG pO2 25.4 L, VBG HCO3 23.6, VBG Total CO2 25.2, VBG O2 Saturation 47.3 L, VBG Base Excess -2.9 L 11/24/23 17:50: Urine Color Yellow, Urine Appearance Clear, Urine pH 6.0, Ur Specific [place] <= 1.005, Urine Protein Negative, Urine Glucose (UA) 3+, Urine Ketones Negative, Urine Blood Negative, Urine Nitrate Negative, Urine Bilirubin Negative, Urine Urobilinogen 0.2, Ur Leukocyte Esterase Negative, Urine RBC None, Urine WBC None, Ur Squamous Epith Cells Occasional, Urine Bacteria None, Urine Opiates Screen Negative, Urine Methadone Screen Negative, Ur Barbituates Screen Negative, Ur Phencyclidine Scrn Negative, Ur Amphetamines Screen Negative, U Benzodiazepines Scrn Negative, Urine Cocaine Screen Negative, U Marijuana (THC) Screen Negative 11/24/23 18:10: Lactate 3.6 H 11/24/23 19:11: Sodium 122 L, Potassium 5.8 H, Chloride 89 L, Carbon Dioxide 26, Anion Gap 12.8, BUN 25 H, Creatinine 1.70 H, Estimated Creat Clear 69, Estimated GFR 43 L, Est GFR ( Amer) 52 L, Glucose 798 H* D, Calcium 8.9 11/24/23 22:40: Sodium 128 L, Potassium 4.1 D, Chloride 99, Carbon Dioxide 25, Anion Gap 8.1, BUN 20, Creatinine 1.40 H, Estimated Creat Clear 88, Estimated GFR 53 L, Est GFR ( Amer) 65 D, Glucose 364 H D, Lactate 1.3, Calcium 9.5 11/25/23 00:50: Sodium 131 L, Potassium 3.8, Chloride 102, Carbon Dioxide 23, Anion Gap 9.8, BUN 19, Creatinine 1.20, Estimated Creat Clear 103, Estimated GFR 64, Est GFR ( Amer) 77, Glucose 307 H, Calcium 9.1 11/25/23 03:25: Sodium 132 L, Potassium 3.5, Chloride 104, Carbon Dioxide 24, Anion Gap 7.5, BUN 18, Creatinine 1.20, Estimated Creat Clear 103, Estimated GFR 64, Est GFR ( Amer) 77, Glucose 257 H, Calcium 8.8 11/25/23 06:07: WBC 6.6, RBC 4.34 L, Hgb 14.5 D, Hct 43.2, MCV 99.4 H, MCH 33.4 H, MCHC 33.6, RDW 12.4, Plt Count 226, MPV 10.2, Neut % (Auto) 57.8, Lymph % (Auto) 34.2, [place] % (Auto) 5.4, Eos % (Auto) 1.5, Baso % (Auto) 1.0, Neut # (Auto) 3.8, Lymph # (Auto) 2.2, [place] # (Auto) 0.4, Eos # (Auto) 0.1, Baso # (Auto) 0.1, Sodium 130 L, Potassium 3.9, Chloride 103, Carbon Dioxide 23, Anion Gap 7.9, BUN 17, Creatinine 1.30 H, Estimated Creat Clear 95, Estimated GFR 58 L , Est GFR ( Amer) 70, Glucose 366 H D, Calcium 8.6 I & O for Last 24 hours: Intake & Output 11/22/23 11/23/23 11/24/23 11/25/23 23:59 23:59 23:59 23:59 Intake Total 12.416 / 12.416 295.127 / 295.127 Output Total 0 / 0 250 / 250 Balance 12.416 / 12.416 45.127 / 45.127 Weight 99.875 kg 99.904 kg Constitutional Constitutional: no acute distress *Routine HEENT Exam Head: Present normocephalic Eye: Present EOMI and PERRL ENT: Present mucous membranes moist *Routine Neck Exam Neck: Present supple; Absent lymphadenopathy *Routine Respiratory Exam Respiratory: Present CTA bilaterally *Routine Cardiovascular Exam Cardiovascular: Present RRR *Routine Abdominal Exam Abdominal: Present soft and normoactive bowel sounds; Absent tenderness *Routine Extremities Exam Extremities: Absent cyanosis, clubbing or edema *Routine Skin Exam Skin: Present warm; Absent rash *Routine Neurological Exam Neurological: Present alert and oriented X3 Results Data Completed and Pending Labs on day of discharge: Labs from last 24 hours 11/25/23 11/25/23 11/25/23 06:07 03:25 00:50 WBC 6.6 RBC 4.34 L Hgb 14.5 D Hct 43.2 MCV 99.4 H MCH 33.4 H MCHC 33.6 RDW 12.4 Plt Count 226 MPV 10.2 Neut % (Auto) 57.8 Lymph % (Auto) 34.2 [place] % (Auto) 5.4 Eos % (Auto) 1.5 Baso % (Auto) 1.0 Neut # (Auto) 3.8 Lymph # (Auto) 2.2 [place] # (Auto) 0.4 Eos # (Auto) 0.1 Baso # (Auto) 0.1 VBG pH VBG pCO2 VBG pO2 VBG HCO3 VBG Total CO2 VBG O2 Saturation VBG Base Excess Sodium 130 L 132 L 131 L Potassium 3.9 3.5 3.8 Chloride 103 104 102 Carbon Dioxide 23 24 23 Anion Gap 7.9 7.5 9.8 BUN 17 18 19 Creatinine 1.30 H 1.20 1.20 Estimated Creat Clear 95 103 103 Estimated GFR 58 L 64 64 Est GFR ( Amer) 70 77 77 Glucose 366 H D 257 H 307 H Hemoglobin A1c Lactate Calcium 8.6 8.8 9.1 Magnesium Total Bilirubin AST ALT Alkaline Phosphatase Total Protein Albumin Globulin Albumin/Globulin Ratio Lipase TSH Thyroxine (T4) Urine Color Urine Appearance Urine pH Ur Specific [place] Urine Protein Urine Glucose (UA) Urine Ketones Urine Blood Urine Nitrate Urine Bilirubin Urine Urobilinogen Ur Leukocyte Esterase Urine RBC Urine WBC Ur Squamous Epith Cells Urine Bacteria Urine Opiates Screen Urine Methadone Screen Ur Barbituates Screen Ur Phencyclidine Scrn Ur Amphetamines Screen U Benzodiazepines Scrn Urine Cocaine Screen U Marijuana (THC) Screen Acetone Level SARS-CoV-2 (PCR) Influenza A Untype (PCR) Influenza Type B (PCR) 11/24/23 11/24/23 11/24/23 22:40 19:11 18:10 WBC RBC Hgb Hct MCV MCH MCHC RDW Plt Count MPV Neut % (Auto) Lymph % (Auto) [place] % (Auto) Eos % (Auto) Baso % (Auto) Neut # (Auto) Lymph # (Auto) [place] # (Auto) Eos # (Auto) Baso # (Auto) VBG pH VBG pCO2 VBG pO2 VBG HCO3 VBG Total CO2 VBG O2 Saturation VBG Base Excess Sodium 128 L 122 L Potassium 4.1 D 5.8 H Chloride 99 89 L Carbon Dioxide 25 26 Anion Gap 8.1 12.8 BUN 20 25 H Creatinine 1.40 H 1.70 H Estimated Creat Clear 88 69 Estimated GFR 53 L 43 L Est GFR ( Amer) 65 D 52 L Glucose 364 H D 798 H* D Hemoglobin A1c Lactate 1.3 3.6 H Calcium 9.5 8.9 Magnesium Total Bilirubin AST ALT Alkaline Phosphatase Total Protein Albumin Globulin Albumin/Globulin Ratio Lipase TSH Thyroxine (T4) Urine Color Urine Appearance Urine pH Ur Specific [place] Urine Protein Urine Glucose (UA) Urine Ketones Urine Blood Urine Nitrate Urine Bilirubin Urine Urobilinogen Ur Leukocyte Esterase Urine RBC Urine WBC Ur Squamous Epith Cells Urine Bacteria Urine Opiates Screen Urine Methadone Screen Ur Barbituates Screen Ur Phencyclidine Scrn Ur Amphetamines Screen U Benzodiazepines Scrn Urine Cocaine Screen U Marijuana (THC) Screen Acetone Level SARS-CoV-2 (PCR) Influenza A Untype (PCR) Influenza Type B (PCR) 11/24/23 11/24/23 11/24/23 17:50 17:48 17:31 WBC RBC Hgb Hct MCV MCH MCHC RDW Plt Count MPV Neut % (Auto) Lymph % (Auto) [place] % (Auto) Eos % (Auto) Baso % (Auto) Neut # (Auto) Lymph # (Auto) [place] # (Auto) Eos # (Auto) Baso # (Auto) VBG pH 7.29 L VBG pCO2 50.3 VBG pO2 25.4 L VBG HCO3 23.6 VBG Total CO2 25.2 VBG O2 Saturation 47.3 L VBG Base Excess -2.9 L Sodium Potassium Chloride Carbon Dioxide Anion Gap BUN Creatinine Estimated Creat Clear Estimated GFR Est GFR ( Amer) Glucose Hemoglobin A1c Lactate Calcium Magnesium Total Bilirubin AST ALT Alkaline Phosphatase Total Protein Albumin Globulin Albumin/Globulin Ratio Lipase TSH Thyroxine (T4) Urine Color Yellow Urine Appearance Clear Urine pH 6.0 Ur Specific [place] <= 1.005 Urine Protein Negative Urine Glucose (UA) 3+ Urine Ketones Negative Urine Blood Negative Urine Nitrate Negative Urine Bilirubin Negative Urine Urobilinogen 0.2 Ur Leukocyte Esterase Negative Urine RBC None Urine WBC None Ur Squamous Epith Cells Occasional Urine Bacteria None Urine Opiates Screen Negative Urine Methadone Screen Negative Ur Barbituates Screen Negative Ur Phencyclidine Scrn Negative Ur Amphetamines Screen Negative U Benzodiazepines Scrn Negative Urine Cocaine Screen Negative U Marijuana (THC) Screen Negative Acetone Level SARS-CoV-2 (PCR) Not detected Influenza A Untype (PCR) Not detected Influenza Type B (PCR) Not detected 11/24/23 17:20 WBC 6.9 RBC 4.82 Hgb 16.2 Hct 51.2 MCV 106.1 H MCH 33.6 H MCHC 31.7 L RDW 12.4 Plt Count 249 MPV 10.4 Neut % (Auto) 71.4 Lymph % (Auto) 22.6 [place] % (Auto) 3.9 Eos % (Auto) 1.2 Baso % (Auto) 0.9 Neut # (Auto) 4.9 Lymph # (Auto) 1.6 [place] # (Auto) 0.3 Eos # (Auto) 0.1 Baso # (Auto) 0.1 VBG pH VBG pCO2 VBG pO2 VBG HCO3 VBG Total CO2 VBG O2 Saturation VBG Base Excess Sodium 117 L Potassium 6.8 H* Chloride 85 L Carbon Dioxide 23 Anion Gap 15.8 H BUN 27 H Creatinine 1.80 H Estimated Creat Clear 65 Estimated GFR 40 L Est GFR ( Amer) 48 L Glucose 1012 H* Hemoglobin A1c 11.8 H Lactate Calcium 9.3 Magnesium 2.2 Total Bilirubin 0.9 AST 31 ALT 31 Alkaline Phosphatase 103 Total Protein 7.1 Albumin 4.4 Globulin 2.7 Albumin/Globulin Ratio 1.6 Lipase 209 TSH 1.84 Thyroxine (T4) 6.2 Urine Color Urine Appearance Urine pH Ur Specific [place] Urine Protein Urine Glucose (UA) Urine Ketones Urine Blood Urine Nitrate Urine Bilirubin Urine Urobilinogen Ur Leukocyte Esterase Urine RBC Urine WBC Ur Squamous Epith Cells Urine Bacteria Urine Opiates Screen Urine Methadone Screen Ur Barbituates Screen Ur Phencyclidine Scrn Ur Amphetamines Screen U Benzodiazepines Scrn Urine Cocaine Screen U Marijuana (THC) Screen Acetone Level None detected SARS-CoV-2 (PCR) Influenza A Untype (PCR) Influenza Type B (PCR) DS: Diagnosis Discharge Diagnosis (1) Hyperosmolar hyperglycemic state (HHS): Status: Acute Code(s): E11.00 - Type 2 diabetes mellitus with hyperosmolarity without nonketotic hyperglycemic-hyperosmolar coma (NKHHC) (2) Diabetes: Status: Acute Code(s): E11.9 - Type 2 diabetes mellitus without complications (3) Hypertension: Status: Acute Code(s): I10 - Essential (primary) hypertension (4) Tobacco abuse: Status: Acute Code(s): Z72.0 - Tobacco use Meds Home Medications and Allergies Home Medications Medication Instructions Recorded Confirmed Type amlodipine 10 mg-benazepril 40 mg 1 cap PO DAILY High Blood Pressure 08/05/22 11/24/23 History capsule blood-glucose meter #1 ea 11/25/23 Rx insulin glargine 100 unit/mL (3 10 unit (0.1 mL) SQ HS 30 days #3 11/25/23 Rx mL) subcutaneous pen (Lantus mL Solostar U-100 Insulin) sitagliptin 50 mg tablet 50 mg PO DAILY 30 days #30 tabs 11/25/23 Rx New Prescriptions to Start Prescriptions: blood-glucose meter Yeyo Jones insulin glargine [Lantus Solostar U-100 Insulin] Yeyo Jones sitagliptin Yeyo Jones Allergies Allergy/AdvReac Type Severity Reaction Status Date / Time No Known Allergies Allergy Verified 11/24/23 17:12 Discharge Plan Disposition Patient Disposition: Home, Self-Care Condition: Good Discharge Order Discharge Orders: Discharge Order (Routine); Ordered 11/25/23 Ordered By: Yeyo Jones Follow up Plan Follow up with: Rosalva Sinha MD [Primary Care Provider] - 12/03/23 9:30 am (must pay balance at office before being seen ) Prescriptions/Medication Reconciliation: New insulin glargine [Lantus Solostar U-100 Insulin] 100 unit/mL (3 mL) insulin pen 10 unit SQ HS 30 Days Qty: 3 1RF (DME) blood-glucose meter Kit See Rx Instructions .Route Qty: 1 0RF Rx Instructions: As directed sitagliptin 50 mg tablet 50 mg PO DAILY 30 Days Qty: 30 0RF Continued amlodipine-benazepril 10-40 mg capsule 1 cap PO DAILY Patient Comments: TAKE 1 CAPSULE BY MOUTH ONCE DAILY Problem Reconciliation Problems Reviewed?: Yes Patient Discharge Instructions ACTIVITY: Ambulate as tolerated DIET: advance to your usual diet Patient Instructions: How to Check Your Blood Glucose, Carbohydrate-Counting Diet, DI for Diabetes Type 2, DI for Diabetic Ketoacidosis, The Importance of Counting Carbs If You Have Diabetes Providers Primary Care Provider: Rosalva Sinha Admit Provider: Yeyo Jones Attending Provider: Yeyo Jones
--- NOTE | 2023-11-25 11:04 | PC.NURSE ---
Report given to Shahrzad Vasquez
[2023-11-25 11:46] LABS: POC Glucose,Bedside 422 (70-110)
--- NOTE | 2023-11-25 12:39 | PC.NURSE ---
pt follow up made with Jonah Bond APRN on @ 230 to establish pcp per pt request
--- NOTE | 2023-11-25 12:52 | DIET.NUTRFU ---
provided diabetic teaching, multiple handouts of carb counting, portion control and label reading. Also encouraged him to keep a dairy of his BS to review with his PCP. Provided contact information for further follow up
--- NOTE | 2023-11-26 15:34 | CARE MANAGER ---
Patient called back related to hospital discharge. He states he picked everything up and denies questions or concerns. NEMESIO Sky
== END 2023-11-25 13:36 | disposition home or self-care (01) ==
LOC: ER 17:04 → 2ND 19:26
PROVIDERS: Nurse Practitioner Critical Care Medicine; Admitting Provider Internal Medicine; Emergency Provider Emergency Medicine; PCP Family Medicine; Visit Provider Internal Medicine
DX: E11.00 Type 2 diabetes mellitus with hyperosmolarity without nonketotic hyperglycemic-hyperosmolar coma (NKHHC) (principal); I10 Essential (primary) hypertension; Z72.0 Tobacco use; Z79.4 Long term (current) use of insulin
CPT/HCPCS: 36415; 80048; 80053; 80307; 81001; 82009; 82803; 82962; 83036; 83605; 83690; 83735; 84436; 84443; 85025; 87040; 87636; 93005; 99291; G0378

== ENCOUNTER 2023-12-05 12:59 | Outpatient (CLI) | payer BC, SELFPAY ==
[2023-12-06 08:29] VITALS: BMI 30.9
== END 2023-12-05 23:59 ==
LOC: DIETICIAN 13:00
PROVIDERS: PCP Nurse Practitioner Family; Visit Provider Nurse Practitioner Family
DX: E11.9 Type 2 diabetes mellitus without complications (principal); Z71.3 Dietary counseling and surveillance
CPT/HCPCS: 97802

== ENCOUNTER 2023-12-10 14:56 | Outpatient (CLI) | payer BC, SELFPAY ==
[2023-12-10 15:20] LABS: Chloride 108 mmol/L (98-107); Potassium 5.2 mmoL/L (3.5-5.1); Sodium 138 mmol/L (136-145)
[2023-12-10 15:23] LABS: Anion Gap 7.2 mEq/L (5-15); Blood Urea Nitrogen 15 mg/dl (9-20); Calcium 9.4 mg/dl (8.4-10.2); Carbon Dioxide 28 mmol/L (22.0-30.0); Cholesterol 233 mg/dl (140-200); Estimated Glomerular Filt Rate 58 ml/min (>60); GFR (African American) 70 ML/MIN (>60); Glucose 173 mg/dl (74-100); Triglycerides 222 mg/dl (30-150); VLDL Cholesterol 44 mg/dL (0-40)
[2023-12-10 15:24] LABS: Chol/HDL Ratio 7.3 (1-3.5); HDL Cholesterol 32 mg/dl (40-60)
[2023-12-10 15:40] LABS: Direct LDL Cholesterol 123.57 mg/dL (100-129)
== END 2023-12-10 23:59 ==
LOC: LAB.DROPOF 14:56
PROVIDERS: PCP Nurse Practitioner Family; Visit Provider Nurse Practitioner Family
DX: E11.9 Type 2 diabetes mellitus without complications (principal); Z13.220 Encounter for screening for lipoid disorders; Z79.4 Long term (current) use of insulin; Z79.899 Other long term (current) drug therapy
CPT/HCPCS: 80048; 80061

== ENCOUNTER 2023-12-26 12:42 | Outpatient (CLI) | payer BC, SELFPAY ==
[2023-12-26 13:36] LABS: Anion Gap 15.3 mEq/L (5-15); Blood Urea Nitrogen 14 mg/dl (9-20); Carbon Dioxide 23 mmol/L (22.0-30.0); Chloride 106 mmol/L (98-107); Estimated Glomerular Filt Rate 58 ml/min (>60); GFR (African American) 70 ML/MIN (>60); Glucose 135 mg/dl (74-100); Potassium 4.3 mmoL/L (3.5-5.1); Sodium 140 mmol/L (136-145)
== END 2023-12-26 23:59 ==
LOC: LAB.DROPOF 12:43
PROVIDERS: PCP Nurse Practitioner Family; Visit Provider Nurse Practitioner Family
DX: E11.9 Type 2 diabetes mellitus without complications (principal); I10 Essential (primary) hypertension; Z79.4 Long term (current) use of insulin
CPT/HCPCS: 80048

== ENCOUNTER 2024-02-27 12:07 | Outpatient (CLI) | payer BC, SELFPAY ==
[2024-02-27 19:40] LABS: Alanine Aminotransferase 29 U/L (12-78); Albumin Level 4.4 g/dl (3.5-5.0); Albumin/Globulin Ratio 1.8 (1.1-1.8); Alkaline Phosphatase 70 U/L (38-126); Anion Gap 16.4 mEq/L (5-15); Aspartate Amino Transferase 28 U/L (17-59); Bilirubin,Total 0.6 mg/dl (0.2-1.3); Blood Urea Nitrogen 18 mg/dl (9-20); Calcium 9.7 mg/dl (8.4-10.2); Carbon Dioxide 25 mmol/L (22.0-30.0); Chloride 103 mmol/L (98-107); Estimated Glomerular Filt Rate 49 ml/min (>60); GFR (African American) 59 ML/MIN (>60); Globulin 2.5 g/dL (1.3-3.2); Glucose 109 mg/dl (74-100); Potassium 4.4 mmoL/L (3.5-5.1); Sodium 140 mmol/L (136-145); Total Protein,Serum 6.9 g/dl (6.3-8.2)
[2024-02-27 19:48] LABS: Hemoglobin A1C 6.5 % (4.0-6.0)
== END 2024-02-27 23:59 | disposition home or self-care (01) ==
LOC: LAB.DROPOF 02-28 12:07
PROVIDERS: PCP Nurse Practitioner Family; Visit Provider Nurse Practitioner Family
DX: E11.9 Type 2 diabetes mellitus without complications (principal); Z79.899 Other long term (current) drug therapy
CPT/HCPCS: 80053; 83036

== ENCOUNTER 2024-06-04 16:15 | Outpatient (CLI) | payer BC, SELFPAY ==
[2024-06-04 17:23] LABS: Hemoglobin A1C 6.3 % (4.0-6.0)
[2024-06-04 18:08] LABS: Anion Gap 10.7 mEq/L (5-15); Blood Urea Nitrogen 16 mg/dl (9-20); Calcium 9.8 mg/dl (8.4-10.2); Carbon Dioxide 25 mmol/L (22.0-30.0); Chloride 106 mmol/L (98-107); Estimated Glomerular Filt Rate 49 ml/min (>60); GFR (African American) 59 ML/MIN (>60); Glucose 95 mg/dl (74-100); Potassium 4.7 mmoL/L (3.5-5.1); Sodium 137 mmol/L (136-145)
== END 2024-06-04 23:59 | disposition home or self-care (01) ==
LOC: LAB.DROPOF 06-06 16:49
PROVIDERS: PCP Nurse Practitioner Family; Visit Provider Nurse Practitioner Family
DX: E11.9 Type 2 diabetes mellitus without complications (principal); Z79.84 Long term (current) use of oral hypoglycemic drugs
CPT/HCPCS: 80048; 81001; 82043; 82570; 83036; 84156

== ENCOUNTER 2024-06-05 18:00 | Outpatient (CLI) | payer BC, SELFPAY ==
[2024-06-05 12:11] LABS: Microscopic, Urine URINE MICROSCOPIC (MICROSCOPIC)
[2024-06-05 13:02] LABS: Appearance,Urine CLEAR (Clear); Bilirubin,Urine Negative (Negative); Blood, Urine Negative (Negative); Color,Urine YELLOW (Yellow); Glucose,Urine (UA) 3+ (Negative); Ketones,Urine Negative (Negative); Leukocyte Esterase,Urine Negative (Negative); Nitrate,Urine Negative (Negative); Protein,Urine Negative (Negative); Specific Gravity, Urine 1.015 (1.005-1.030); Urobilinogen,Urine 0.2 EU/dl (0.2)
[2024-06-05 13:13] LABS: Creatinine,Urine Random 97 mg/dL (Not Estab.)
[2024-06-05 13:15] LABS: Microalbumin < 6.000 mg/L (0-16.7)
[2024-06-05 13:18] LABS: Bacteria,Urine Trace /lpf
== END 2024-06-05 23:59 | disposition home or self-care (01) ==
LOC: LAB.DROPOF 06-30 11:18
PROVIDERS: PCP Nurse Practitioner Family; Visit Provider Nurse Practitioner Family
DX: E11.9 Type 2 diabetes mellitus without complications (principal); Z79.84 Long term (current) use of oral hypoglycemic drugs
CPT/HCPCS: 81001; 82043; 82570; 84156

== ENCOUNTER 2024-06-25 15:30 | Outpatient (CLI) | payer BC, SELFPAY ==
--- NOTE | 2024-06-25 15:33 | XR_ITS ---
FINAL REPORT CLINICAL HISTORY: left hip pain FINDINGS: Left hip Three views were obtained. There is no acute fracture or dislocation. The joint spaces appear normal. No soft tissue abnormality is identified. IMPRESSION: No acute process. Reviewed, Interpreted and Dictated by Sawyer Butt III, MD Transcribed by Mariam Irving Authenticated and . [facility]
--- NOTE | 2024-06-25 15:33 | XR_ITS ---
FINAL REPORT CLINICAL HISTORY: back pain FINDINGS: LUMBAR SPINE Three views demonstrate no acute fracture. There are mild degenerative changes with small osteophytes. Mild rightward curvature is identified. There is no malalignment. IMPRESSION: Mild degenerative changes. Reviewed, Interpreted and Dictated by Sawyer Butt III, MD Transcribed by Mariam Irving Authenticated and [facility]
== END 2024-06-25 23:59 | disposition home or self-care (01) ==
LOC: RAD 15:31
PROVIDERS: PCP Nurse Practitioner Family; Visit Provider Nurse Practitioner Family
DX: M54.50 Low back pain, unspecified (principal); M25.552 Pain in left hip
CPT/HCPCS: 72100; 73502

== ENCOUNTER 2024-09-10 10:00 | Outpatient (CLI) | payer BC, SELFPAY ==
[2024-09-10 17:28] LABS: Hemoglobin A1C 6.5 % (4.0-6.0)
[2024-09-10 17:43] LABS: Anion Gap 12.7 mEq/L (5-15); Blood Urea Nitrogen 19 mg/dl (9-20); Calcium 9.7 mg/dl (8.4-10.2); Carbon Dioxide 24 mmol/L (22.0-30.0); Chloride 107 mmol/L (98-107); Creatinine Clearance Estimated 87 mL/min (50-200); Estimated Glomerular Filt Rate 53 ml/min (>60); GFR (African American) 64 ML/MIN (>60); Glucose 125 mg/dl (74-100); Potassium 4.7 mmoL/L (3.5-5.1); Sodium 139 mmol/L (136-145)
[2024-09-10 17:55] LABS: HIV (1&2) Antibody Rapid NONREACTIVE (NONREACTIVE)
[2024-09-16 08:44] LABS: HCV Ab NON REACTIVE
== END 2024-09-10 23:59 | disposition home or self-care (01) ==
LOC: LAB.DROPOF 09-14 10:06
PROVIDERS: PCP Nurse Practitioner Family; Visit Provider Nurse Practitioner Family
DX: Z11.4 Encounter for screening for human immunodeficiency virus [HIV] (principal); Z11.59 Encounter for screening for other viral diseases; E11.9 Type 2 diabetes mellitus without complications; Z79.84 Long term (current) use of oral hypoglycemic drugs
CPT/HCPCS: 80048; 83036; 86803; 87389

== ENCOUNTER 2024-12-07 11:14 | Day surgery (SDC) | payer BC, SELFPAY ==
[2024-12-04 09:35] VITALS: BMI 30.8
[2024-12-07 11:31] VITALS: BP 114/77; PULSE 109; RESP 17; TEMP 36.1; O2SAT 97
[2024-12-07 11:43] LABS: POC Glucose,Bedside 147 (70-110)
--- NOTE | 2024-12-07 12:32 | P.PNANES_ITS ---
[facility] Disclaimer: The information contained in this section may have been updated after the patient was seen, as this information can be updated by other users. Medical History Diabetes Tobacco abuse Hyperosmolar hyperglycemic state (HHS) Hypertension Family History Mother Coronary artery disease Father Diabetes Social History Smoking Status: Current every day smoker alcohol intake: current substance use type: denies use current occupational status: employed Travel in the last 8 weeks: None caffeine: Yes [facility] Anesthesia Checklist Patient Identification Patient Identification: Verbal (Name & ) Structural Data Admitted From: Home Planned Operative Procedure/s: colonoscopy NPO Status Verified Time NPO: 00:00 Airway Assessment Mallampati Score:: Class II C-Spine Mobility Assessed: Yes TMJ Mobility Assessed: Yes Dentition: Good Dentition Neurological Assessment Level of Consciousness: Awake, Alert and Appropriate Anesthesia Plan Anesthesia Risk discussed: Yes Anesthesia Plan: Verified ASA Class: II Anesthesia Type: MAC
--- NOTE | 2024-12-07 12:45 | EXP.HP ---
History of Present Illness *Admission Date: 12/07/24 *Reason for visit:: Screening *History of present illness: Mr. Rivera is a 54-year-old gentleman who is here for initial screening colonoscopy. The examination is deemed medically necessary for screening colonoscopy. The patient has been seen, interviewed and examined prior to the procedure by both myself and the anesthesia provider. [facility] Disclaimer: The information contained in this section may have been updated after the patient was seen, as this information can be updated by other users. Medical History (Updated 12/07/24 @ 12:46 by Ameya Wilson II, MD) Colon cancer screening Diabetes Tobacco abuse Hyperosmolar hyperglycemic state (HHS) Hypertension Family History Mother Coronary artery disease Father Diabetes Social History (Updated 12/07/24 @ 12:33 by Ayo Fischer CRNA) Smoking Status: Current every day smoker alcohol intake: current substance use type: denies use current occupational status: employed Travel in the last 8 weeks: None caffeine: Yes Have you lived/traveled outside [place] in past 30 days?: No Contact w/someone who lives/traveled outside US past 30 days?: No Exposure to someone with infectious disease in past 14 days?: No Do you have a fever (greater than 100.4 F or 38 C)?: No Have you tested positive for COVID-19: No Exposed to someone with COVID-19 in past 14 days?: No Do you have a sore throat?: No Do you have a cough?: No Do you have any weakness?: No Are you experiencing any nausea/vomitting?: No Do you have any diarrhea?: No Are you experiencing any unusual bleeding?: No Do you have any muscle aches/pain?: No Do you have any abdominal pain?: No Are you experiencing loss of taste or smell?: No Other Medical History Have you received the Flu Vaccine for this season: No Have you received the Pneumonia Vaccine: No Review of Systems Review of Systems Review of systems (narrative): Negative *Cardiovascular Comments: Negative *Gastrointestinal Comments: Negative *Genitourinary Comments: Negative *Musculoskeletal Comments: Negative *Neurologic Comments: Negative Meds Home Medications and Allergies Home Medications ?Medication ?Instructions ?Recorded ?Confirmed ?Type blood-glucose meter #1 ea 11/25/23 12/07/24 Rx blood-glucose meter (Accu-Chek #1 ea 11/28/23 12/04/24 History Guide Me Glucose Meter) trazodone 50 mg tablet 50 - 100 mg (1 - 2 x 50 mg) PO HS 12/26/23 12/07/24 Rx #180 tabs empagliflozin 25 mg tablet 25 mg PO DAILY #90 tabs 02/27/24 12/07/24 Rx (Jardiance) blood sugar diagnostic (Accu-Chek #100 ea 04/01/24 12/04/24 Rx Guide test strips) lancets (Accu-Chek Softclix #200 ea 04/01/24 12/07/24 Rx Lancets) sitagliptin phosphate 100 mg 100 mg PO DAILY #90 tabs 04/01/24 12/07/24 Rx tablet (Januvia) sodium,potassium,mag sulfates 17.5 See Rx Instructions PO .COMPLEX 11/26/24 12/04/24 Rx gram-3.13 gram-1.6 gram oral soln #354 mL (Suprep Bowel Prep Kit) amlodipine 10 mg-benazepril 40 mg 1 cap PO DAILY High Blood Pressure 12/04/24 12/07/24 History capsule (Lotrel) New Prescriptions to Start Prescriptions: Allergies Allergy/AdvReac Type Severity Reaction Status Date / Time No Known Allergies Allergy Verified 12/07/24 11:26 Exam Data for Last 24 hours Vital signs and Labs for Last 24 Hours: Temp Pulse Resp BP Pulse Ox O2 Del Method 97 F L 109 H 17 114/77 97 Room Air 12/07/24 11:31 12/07/24 11:31 12/07/24 11:31 12/07/24 11:31 12/07/24 11:31 12/07/24 11:31 Laboratory Results - last 24 hr 12/07/24 11:34: POC Glucose 147 H I & O for Last 24 hours: Intake & Output 12/04/24 12/05/24 12/06/24 12/07/24 23:59 23:59 23:59 23:59 Weight 215 lb *Routine HEENT Exam Head: Present normocephalic Eye: Present EOMI and PERRL ENT: Present mucous membranes moist *Routine Neck Exam Neck: Present supple *Routine Respiratory Exam Respiratory: Present CTA bilaterally *Routine Cardiovascular Exam Cardiovascular: Present RRR *Routine Abdominal Exam Abdominal: Present soft and normoactive bowel sounds; Absent tenderness *Routine Rectal Exam Rectal:: deferred *Routine Genitalia Exam Genitalia:: deferred *Routine Extremities Exam Extremities: Absent cyanosis, clubbing or edema *Routine Skin Exam Skin: Present warm; Absent rash *Routine Neurological Exam Neurological: Present alert and oriented X3 Assessment and Plan *Assessment and plan (1) Screening for colon cancer: Status: Acute Category: Medical Code(s): Z12.11 - Encounter for screening for malignant neoplasm of colon Plan A/P: 1. Screening colonoscopy is the preprocedural diagnosis. The patient will be anesthetized/sedated using MAC sedation. The patient has been seen and examined. Cardiac and lung assessment prior to the examination is stable. Proceed with planned screening colonoscopy
--- NOTE | 2024-12-07 12:46 | HMH.PROCNOTE ---
[facility] Procedure Note Date: 12/07/24 Time: 13:02 Procedure Note:: Colonoscopy Procedure Report: Colonoscopy with cold snare polypectomy Endoscopist: Ameya Wislon II, MD Referring physician: AGUSTÍN Rivas Date of Procedure: December 07, 2024 Equipment: Olympus 190 variable stiffness pediatric colonoscope Sedation: MAC sedation Indication: Mr. Rivera is a 54-year-old gentleman who is here for initial screening colonoscopy. He reports no abdominal pain, weight loss, change in his bowel habits or rectal bleeding. He reports no family history of colon cancer. Procedure: Prior to the procedure, a history and physical exam was performed, and patient's medications and allergies were reviewed. The risks, benefits and alternatives of the sedation and procedure were discussed with the patient. All questions were answered and informed consent was obtained. The patient was brought to the procedure room. Patient identification and proposed procedure were verified by the physician and the nurse. The patient was placed in a left lateral decubitus position and the scope was passed under direct vision. Throughout the procedure, the patient's blood pressure, pulse, and oxygen saturations were monitored continuously. The colonoscopy was accomplished without difficulty. The patient tolerated the procedure well. Findings: On digital rectal examination there was normal rectal tone. There were no external hemorrhoids. The colonoscope was introduced through the anal canal to the rectum and advanced to the cecum. The ileocecal valve and appendiceal orifice were identified. The scope was advanced a short distance into the ileum which appeared grossly normal. The scope was then withdrawn into the colon. There were 5 polyps (transverse x 1 (4 mm), descending x 2 (3 and 4 mm) and rectal x 2 (4 and 4 mm)). These were all removed via cold snare polypectomy. The remaining cecum, ascending, transverse, descending, sigmoid and rectum were grossly normal. There were no other mucosal abnormalities identified. Upon retroflexion within the rectum there were grade 2 internal hemorrhoids. The preparation was excellent throughout with [place] Preparation Score of 9. The cecal time was 13 minutes. Impression: 1. Diminutive colonic polyps x 5 2. Grade 2 internal hemorrhoids Plan: I will follow-up the polyp histology and recommend repeat surveillance colonoscopy again in 3 to 5 years based upon pathology. I would encourage psyllium bulking fiber supplementation on a maintenance basis.
[2024-12-07 13:06] VITALS: BP 81/51; PULSE 98; RESP 15; O2SAT 99
[2024-12-07 13:08] VITALS: O2SAT 100
[2024-12-07 13:16] VITALS: BP 123/78; PULSE 92; RESP 17; O2SAT 97
[2024-12-07 13:26] VITALS: BP 122/78; PULSE 90; RESP 17; O2SAT 97
[2024-12-07 13:36] VITALS: BP 123/84; PULSE 85; RESP 18; O2SAT 97
== END 2024-12-07 14:10 | disposition home or self-care (01) ==
PROVIDERS: PCP Nurse Practitioner Family; Visit Provider Internal Medicine Gastroenterology
PROC: 0DJD8ZZ Inspection of Lower Intestinal Tract, Via Natural or Artificial Opening Endoscopic (ICD-10-PCS; CPT 45378; principal; 2024-12-07 12:30)
DX: Z12.11 Encounter for screening for malignant neoplasm of colon (principal); K63.5 Polyp of colon; K64.1 Second degree hemorrhoids
CPT/HCPCS: 45385; 82962

== ENCOUNTER 2025-05-03 12:05 | Outpatient (CLI) | payer BC, SELFPAY ==
[2025-05-03 14:09] LABS: Microscopic, Urine URINE MICROSCOPIC (MICROSCOPIC)
[2025-05-03 16:39] LABS: Hematocrit 52.5 % (42.0-52.0); Hemoglobin 17.6 g/dL (14.1-18.0); Immature Granulocytes % 0.5 %; Mean Corpuscular HGB Conc 33.5 g/dL (31.8-35.4); Mean Corpuscular Hemoglobin 33.4 pg (27.0-31.2); Mean Corpuscular Volume 99.6 fl (80-94); Nucleated Red Blood Cells % 0 %; Platelet Count 269 K/mm3 (142-424); Red Blood Count 5.27 M/mm3 (4.60-6.20); Red Cell Distribution Width-SD 47.8 fL; White Blood Count 7.9 K/mm3 (4.8-10.8)
[2025-05-03 16:41] LABS: Bilirubin,Urine Negative (Negative); Color,Urine YELLOW (Yellow); Glucose,Urine (UA) Negative (Negative); Ketones,Urine Negative (Negative); Leukocyte Esterase,Urine Negative (Negative); PH,Urine 6.0 (5.0-8.5); Protein,Urine Negative (Negative); Specific Gravity, Urine >= 1.030 (1.005-1.030); Urobilinogen,Urine 0.2 EU/dl (0.2)
[2025-05-03 17:04] LABS: Bacteria,Urine 1+ /lpf
[2025-05-03 17:06] LABS: Alanine Aminotransferase 25 U/L (12-78); Albumin Level 4.6 g/dl (3.5-5.0); Albumin/Globulin Ratio 1.6 (1.1-1.8); Alkaline Phosphatase 76 U/L (38-126); Anion Gap 18.9 mEq/L (5-15); Aspartate Amino Transferase 25 U/L (17-59); Bilirubin,Total 0.6 mg/dl (0.2-1.3); Blood Urea Nitrogen 14 mg/dl (9-20); Calcium 9.8 mg/dl (8.4-10.2); Carbon Dioxide 25 mmol/L (22.0-30.0); Chloride 99 mmol/L (98-107); Cholesterol 216 mg/dl (140-200); Creatinine,Serum 1.10 mg/dl (0.66-1.25); Estimated Glomerular Filt Rate 70 ml/min (>60); GFR (African American) 85 ML/MIN (>60); Globulin 2.8 g/dL (1.3-3.2); Glucose 137 mg/dl (74-100); HDL Cholesterol 44 mg/dl (40-60); Potassium 4.9 mmoL/L (3.5-5.1); Sodium 138 mmol/L (136-145); Total Protein,Serum 7.4 g/dl (6.3-8.2); Triglycerides 184 mg/dl (30-150)
[2025-05-03 17:55] LABS: Vitamin B12 189 pg/mL (239-931)
[2025-05-03 19:00] LABS: Folate 6.04 ng/mL
[2025-05-03 20:32] LABS: Hemoglobin A1C 8.4 % (4.0-6.0)
== END 2025-05-03 23:59 | disposition home or self-care (01) ==
LOC: LAB.DROPOF 05-04 12:33
PROVIDERS: PCP Nurse Practitioner Family; Visit Provider Nurse Practitioner Family
DX: D53.9 Nutritional anemia, unspecified (principal); I10 Essential (primary) hypertension; E11.9 Type 2 diabetes mellitus without complications; G47.00 Insomnia, unspecified; R41.3 Other amnesia; Z13.220 Encounter for screening for lipoid disorders; Z72.0 Tobacco use
CPT/HCPCS: 80053; 80061; 81001; 82043; 82570; 82607; 82746; 83036; 84156; 85025; 87086

== ENCOUNTER 2025-08-04 16:41 | Outpatient (CLI) | payer BC, SELFPAY ==
[2025-08-04 18:11] LABS: Anion Gap 15.0 mEq/L (5-15); Blood Urea Nitrogen 27 mg/dl (9-20); Calcium 9.8 mg/dl (8.4-10.2); Carbon Dioxide 25 mmol/L (22.0-30.0); Chloride 103 mmol/L (98-107); Cholesterol 113 mg/dl (140-200); Creatinine,Serum 1.80 mg/dl (0.66-1.25); Estimated Glomerular Filt Rate 40 ml/min (>60); GFR (African American) 48 ML/MIN (>60); Glucose 106 mg/dl (74-100); HDL Cholesterol 42 mg/dl (40-60); Potassium 5.0 mmoL/L (3.5-5.1); Sodium 138 mmol/L (136-145); Triglycerides 144 mg/dl (30-150)
[2025-08-04 19:06] LABS: Vitamin B12 > 1000 pg/mL (239-931)
[2025-08-04 20:50] LABS: Hemoglobin A1C 7.4 % (4.0-6.0)
== END 2025-08-04 23:59 ==
LOC: LAB.DROPOF 08-05 12:51
PROVIDERS: PCP Nurse Practitioner Family; Visit Provider Nurse Practitioner Family
DX: E53.8 Deficiency of other specified B group vitamins (principal); E78.5 Hyperlipidemia, unspecified; M25.552 Pain in left hip; M54.50 Low back pain, unspecified; E11.9 Type 2 diabetes mellitus without complications; I10 Essential (primary) hypertension
CPT/HCPCS: 80048; 80061; 82607; 83036

== ENCOUNTER 2025-08-18 10:00 | Outpatient (RCR) | payer BC, SELFPAY ==
--- NOTE | 2025-08-16 14:46 | [facility]H.PTOPEV ---
PT Evaluation Rehab PT Outpatient Evaluation Start: 08/16/25 14:31 Freq: Status: Active Protocol: Document 08/16/25 14:31 ALESHIA (Rec: 08/16/25 14:46 PHOANT [id number]) E-signed By Jaiden Disla, PT Outpatient Therapy Subjective History Subjective History This is the initial PT eval for Rinku Rivera, 55 yoaam who presents with c/o L LE pain with numbness and tingling x ~ 3 mos with insidious onset of symptoms. He reports pain is intermittent and activity dependent with it being much worse with prolonged standing or walking. He reports the pain dissipates fairly quickly with sitting. He reports a past hx of low back pain, but it did not resemble this pain and he currently has no pain in his low back. 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 Chief Complaint Pain Symptom Type Ache Symptoms Relieved By Rest/Positioning Symptoms Aggravated Standing,Walking By Prior Functional None Limitations Current Functional Standing,Walking Limitations Symptom Description Intermittent,Activity Dependent Level of pain today 0 (0-10) Pain scale - at its 9 worst (0-10) Lumbopelvic Eval Posture Thoracic Spine Neutral Posture Standing Position Lumbar Spine Posture Neutral Standing Position Palapation tenderness left Lumbar/Sacral Tenderness Palpation Findings Lumbar/Sacral 2/4 L PSIS Palpation Overall Comment Range of Motion Lumbar Spine Active 0-60 Flexion Range of Motion (degrees) Lumbar Spine Active 0-20 Extension Range of Motion (degrees) Left Lumbar Spine 0-20 Lateral Flexion Active Range of Motion (degrees) Right Lumbar Spine 0-20 Lateral Flexion Active Range of Motion (degrees) Manual Muscle Test Left Knee Extension 5 Normal Strength Grade Knee Flexion 4 Good Strength Grade Hip Flexion Strength 4 Good Grade Hip Abduction 4+ Good+ Strength Grade Hip Adduction 5 Normal Strength Grade Ankle Dorsiflexion 5 Normal Strength Grade Gastronemius/Soleus 5 Normal Strength Grade Special Tests Forward Bending Test Negative Left,Negative Right - Sitting Hip Scouring ( Negative Left,Negative Right Quadrant) Test Hip Tyrell (NARENDRA) Negative Right,Positive Left Test Hip Bowstring (Cram) Negative Right,Positive Left Test Sciatic Nerve Negative Right,Positive Left Tension Test Unilateral Straight Negative Left,Negative Right Leg Raise (Lasegue) Test Sacroiliac Joint Negative Left,Negative Right Compression Test Sacroiliac Joint Negative Left,Negative Right Distraction Test Lumbar Long Holderness Negative Distraction Test/ Manual Traction Lower Extremity Functional Index Activities Today, do you or would you have any difficulty at all with: a.Any of your usual A little bit of difficulty work, housework or school activities b. Your usual Moderate difficulty hobbies, recreational or sporting activities c. Getting into or No difficulty out of the bath d. Walking between A little bit of difficulty rooms e. Putting on your No difficulty shoes or socks f. Squatting A little bit of difficulty g. Lifting an object No difficulty , like a bag of groceries from the floor h. Performing light A little bit of difficulty activities around your home i. Performing heavy Quite a bit of difficulty activities around your home j. Getting into or No difficulty out of a car k. Walking 2 blocks Quite a bit of difficulty l. Walking a mile Extreme difficulty or unable to perform activity m. Going up or down Moderate difficulty 10 stairs (about 1 flight of stairs) n. Standing for 1 Extreme difficulty or unable to perform activity hour o. Sitting for 1 No difficulty hour p. Running on even Extreme difficulty or unable to perform activity ground q. Running on uneven Extreme difficulty or unable to perform activity ground r. Making sharp Extreme difficulty or unable to perform activity turns while running fast s. Hopping Extreme difficulty or unable to perform activity t. Rolling over in No difficulty bed LEFI Score Lower Extremity 42 Functional Index Score Outpatient Therapy Assessment Impairments Problems/ Palpation Tenderness,Impaired Range of Motion,Impaired Impairmments Strength,Impaired Walking,Impaired Standing,Impaired Lifting,Impaired Household Care,Impaired Work Activities,Subjective C/O Pain,Impaired Self Care/Self Management Prognosis Rehab Potential Good Comment Skilled therapy is indicated to reduce pain, improve strength, and increase pain-free mobility in order to aid improvement in overall QOL. Clinical Impression Consistent with Yes Diagnosis PT Patient Goals PT Patient Goals PT Short Term In 2 wks pt will complete these goals in order to aid Patient Goals improvement in function specifically with all ADLs: 1) Increase L LE MMT to at least 4+/5 throughout 2) Decrease pain in L LE to 6/10 at worst with walking 3) Decrease TTP in L PSIS area to 1/4 4) Increase LEFS score to 50 or more. PT Usp Patient In 4 wks pt will complete these goals in order to aid Goals improvement in function specifically with all ADLs: 1) Increase L LE MMT to 5/5 throughout 2) Decrease pain in L LE to 3/10 at worst with walking 3) Decrease TTP in L PSIS area to 0/4 4) Increase LEFS score to 55 or more 5) Be independent with HEP in order to aid improvement in all functional mobility. Outpatient Therapy Plan of Care Treatment Plan May Include Therapeutic Exercise Yes Including Home Exercise Program Manual Therapy Yes Techniques Neuromuscular Re- Yes education Therapeutic Yes Activities to Return to Previous Functional/Work Level ADL/Self Care Yes Education Thermal Modalities Yes Electrical Yes Stimulation Orthotics/Bracing/ Yes Splinting Massage Yes Eval/Re-Eval Yes Frequency Times per week 2 Duration Number of Weeks 4 Addendums This patient is a No candidate for social or vocational rehab ? Patient/Guardian Yes verbally acknowledges understanding of treatment program and consents to further treatment? Patient/Guardian Yes verbally acknowledges understanding of diagnosis, prognosis and goals for treatment? Eval Complexity PT Charges 51918 - Moderate Complexity Shoulder/Elbow Eval Shoulder Objective Measurements Elbow Objective Measurements PHYSICIAN CERTIFICATION: I certify the specified therapy services for Rinku Rivera are required, authorized, and reviewed every 30 days.
== END 2025-08-18 23:59 | disposition home or self-care (01) ==
LOC: PT 10:00
PROVIDERS: PCP Nurse Practitioner Family; Visit Provider Nurse Practitioner Family
DX: M54.16 Radiculopathy, lumbar region (principal); M25.552 Pain in left hip
CPT/HCPCS: 97110; 97162

== ENCOUNTER 2025-09-07 15:00 | Outpatient (RCR) | payer BC, SELFPAY | END 2025-09-07 23:59 | disposition home or self-care (01) | LOC: PT 15:00 | PROVIDERS: PCP Nurse Practitioner Family; Visit Provider Nurse Practitioner Family | DX: M54.16 Radiculopathy, lumbar region (principal); M25.552 Pain in left hip | CPT/HCPCS: 97110; 97140; 97530 ==